=== PATIENT | female | born 1990 | race Two or more races ===

== ENCOUNTER → 2023-02-01 | Outpatient (CLI) | payer SELFPAY ==
[2023-02-01 10:03] LABS: Hematocrit 35.5 % (36.0-46.0); Hemoglobin 11.8 g/dL (12.2-16.2); Mean Corpuscular Hemoglobin 27.7 pg (28.0-32.0); Mean Corpuscular Hgb Conc. 33.4 g/dL (32.0-36.0); Red Blood Cells 4.28 10^6/uL (4.0-5.20); Red Cell Distribution Width 14.2 % (11.8-14.3); White Blood Cell 14.6 10^3/uL (4.4-10.8)
[2023-02-01 10:05] LABS: Band Neutrophils % (manual) 0; Basophils % (manual) 0 (0.0-2.0); Blast Cells 0; Eosinophils % (manual) 0 (0-7); Metamyelocytes % 0; Myelocytes % 0; Promyelocytes % 0; Reactive Lymphocytes 0
[2023-02-01 10:53] LABS: Lymphocytes % (manual) 15 (10.0-50.0); Monocytes % (manual) 9 (0-12)
[2023-02-01 11:25] LABS: Alcohol, Urine < 3.0 mg/dL (0-10); Amphetamine Screen, Urine NEGATIVE (NEGATIVE); Barbiturate Scree,Urine NEGATIVE (NEGATIVE); Benzodiazephine Screen, Urine NEGATIVE (NEGATIVE); Cannabinoid Screen, Urine NEGATIVE (NEGATIVE); Cocaine Screen, Urine NEGATIVE (NEGATIVE); Opiate Scree,Urine NEGATIVE (NEGATIVE); Phencyclidine Screen, Urine NEGATIVE (NEGATIVE)
[2023-02-02 06:17] LABS: RPR Non Reactive (Non Reactive)
== END | disposition home or self-care (01) ==
LOC: LAB 09:12
PROVIDERS: ATTEND Obstetrics & Gynecology
DX: Z34.80 Encounter for supervision of other normal pregnancy, unspecified trimester (principal); Z31.430 Encounter of female for testing for genetic disease carrier status for procreative management; Z36.0 Encounter for antenatal screening for chromosomal anomalies; N39.0 Urinary tract infection, site not specified; Z3A.00 Weeks of gestation of pregnancy not specified
CPT/HCPCS: 36415; 80307; 83036; 84112; 84702; 85007; 85027; 86592; 86762; 86850; 86900; 86901; 87086; 87340

== ENCOUNTER → 2023-03-22 | Outpatient (CLI) | payer SELFPAY ==
[2023-03-22 10:17] LABS: Basophils # (auto) 0.1 10 ^3/uL (0-0.2); Basophils % (auto) 0.7 % (0.0-2.0); Eosinophils # (auto) 0.1 10 ^3/uL (0-0.8); Eosinophils % (auto) 1.3 % (0.0-7.0); Hematocrit 36.6 % (36.0-46.0); Hemoglobin 12.6 g/dL (12.2-16.2); Lymphocytes # (auto) 2.4 10 ^3/uL (0.4-5.4); Lymphocytes % (auto) 21.1 % (10.0-50.0); Mean Corpuscular Hemoglobin 28.3 pg (28.0-32.0); Mean Corpuscular Hgb Conc. 34.3 g/dL (32.0-36.0); Mean Corpuscular Volume 82.5 fL (80.0-100.0); Monocytes # (auto) 0.8 10 ^3/uL (0-1.3); Neutrophils # (auto) 7.8 10 ^3/uL (1.6-8.6); Neutrophils % (auto) 69.9 % (37.0-80.0); Nucleated Red Blood Cells % 0.1 %; Red Blood Cells 4.44 10^6/uL (4.0-5.20); Red Cell Distribution Width 14.4 % (11.8-14.3); White Blood Cell 11.2 10^3/uL (4.4-10.8)
[2023-03-23 07:06] LABS: RPR Non Reactive (Non Reactive)
[2023-03-23 11:07] LABS: Treponema Pallidum Ab LC Non Reactive (Non Reactive)
== END | disposition home or self-care (01) ==
LOC: LAB 09:47
PROVIDERS: ATTEND Obstetrics & Gynecology
DX: Z11.3 Encounter for screening for infections with a predominantly sexual mode of transmission (principal)
CPT/HCPCS: 36415; 82947; 83036; 84112; 85025; 86592; 87081

== ENCOUNTER 2023-04-13 03:20 | Observation (INO) | payer SELFPAY ==
[~2023-04-13] VITALS: Ht 152.4 cm; Wt 76.2 kg
[2023-04-13 05:03] LABS: Basophils # (auto) 0.1 10 ^3/uL (0-0.2); Basophils % (auto) 0.6 % (0.0-2.0); Chloride 105 mmol/L (98-107); Eosinophils # (auto) 0.1 10 ^3/uL (0-0.8); Hemoglobin 13.2 g/dL (12.2-16.2); Lymphocytes # (auto) 3.2 10 ^3/uL (0.4-5.4); Lymphocytes % (auto) 22.4 % (10.0-50.0); Mean Corpuscular Hemoglobin 28.5 pg (28.0-32.0); Mean Corpuscular Hgb Conc. 33.8 g/dL (32.0-36.0); Mean Corpuscular Volume 84.3 fL (80.0-100.0); Monocytes % (auto) 7.1 % (0.0-12.0); Neutrophils # (auto) 9.9 10 ^3/uL (1.6-8.6); Neutrophils % (auto) 68.9 % (37.0-80.0); Nucleated Red Blood Cells % 0.1 %; Potassium 3.8 mmol/L (3.5-5.1); Red Blood Cells 4.63 10^6/uL (4.0-5.20); Red Cell Distribution Width 14.2 % (11.8-14.3); Sodium 135 mmol/L (136-145); White Blood Cell 14.4 10^3/uL (4.4-10.8)
[2023-04-13 05:04] LABS: Anion Gap 8.5 (5-15); Calcium 9.8 mg/dL (8.7-10.4); Carbon Dioxide 21.5 mmol/L (20-30)
[2023-04-13 05:09] LABS: Alkaline Phosphatase 203 U/L (46-116); BUN/Creatinine Ratio 10.5 (10.0-20.0); Blood Urea Nitrogen 8 mg/dL (9-23); Glucose 86 mg/dL (74-106)
[2023-04-13 05:11] LABS: Aspartate Aminotransferase 16 U/L (13-40); Bilirubin, Total 0.4 mg/dL (0.2-1.0)
[2023-04-13 05:24] LABS: INR 0.91 (0.9-1.15); Partial Thromboplastin Time 25.9 SEC (24.5-34.5); Prothrombin Time 9.6 sec (9.3-11.8)
[2023-04-13 05:30] LABS: Alanine Aminotransferase 15 U/L (7-40)
[2023-04-13 05:58] LABS: Urine Bacteria FEW /hpf (None Seen); Urine Blood TRACE /uL (Negative); Urine Clarity Clear (Clear); Urine Color Colorless (Yellow); Urine Protein, UAD Negative (Negative); Urine Specific Gravity 1.008 (1.001-1.035); Urine Urobilinogen Normal (Negative); Urine WBC 1 /hpf (0 - 5)
[2023-04-13 06:19] LABS: Protein, Urine < 6.0 mg/dL (0.0-11.9)
[2023-04-13 06:22] LABS: Amphetamine Screen, Urine Neg (NEGATIVE); Creatinine, Urine 31.75 mg/dL (30.0-125.0); Urine Protein/Creatinine Ratio 0.19
[2023-04-13 06:23] LABS: Barbiturate Scree,Urine Neg (NEGATIVE); Benzodiazephine Screen, Urine Neg (NEGATIVE); Cannabinoid Screen, Urine Neg (NEGATIVE); Cocaine Screen, Urine Neg (NEGATIVE); Opiate Scree,Urine Neg (NEGATIVE); Phencyclidine Screen, Urine Neg (NEGATIVE)
[2023-04-13 06:40] LABS: Uric Acid 4.7 mg/dL (3.1-7.8)
[2023-04-13] MEDS ORDERED: SUCCINYLCHOLINE CHLORIDE 20 MG/ML 10ML VIAL IV ONE (18:22)
[2023-04-13] MEDS ORDERED: TETRACAINE 1% INJ 2 ML VIAL IJ ONE (18:22)
[2023-04-13] MEDS ORDERED: IBUP-1456 PO ×2 (18:29)
[2023-04-13] MEDS ORDERED: DOCU-94 PO ×2 (18:29)
[2023-04-13] MEDS ORDERED: PERCOT PO ×2 (18:29)
[2023-04-14 05:07] LABS: RPR Non Reactive (Non Reactive)
[2023-04-14] MEDS ORDERED: PREN1TAB89 PO ×2 (07:57)
[2023-04-14] MEDS ORDERED: FERR30CA PO ×2 (07:57)
[2023-04-17 21:06] LABS: Treponema pallidum Ab (FTA-Ab) Non Reactive (Non Reactive)
== END 2023-04-13 08:52 | disposition home or self-care (01) ==
LOC: LDRP 03:20
PROVIDERS: ADMIT Obstetrics & Gynecology; ATTEND Obstetrics & Gynecology
DX: O62.9 Abnormality of forces of labor, unspecified (principal); O26.893 Other specified pregnancy related conditions, third trimester; N89.8 Other specified noninflammatory disorders of vagina; Z3A.40 40 weeks gestation of pregnancy; Z79.899 Other long term (current) drug therapy
CPT/HCPCS: 36415; 59025; 76818; 80053; 80307; 81001; 81002; 82570; 84156; 84550; 85025; 85610; 85730; 86592; 86850; 86900; 86901; 94760; G0378; J0330

== ENCOUNTER 2023-04-13 16:15 | Inpatient (IN) | payer SELFPAY ==
[2023-04-13] VITALS (9 sets, daily range): BP systolic 102–159; BP diastolic 64–78; PULSE 79–107; RESP 18–20; TEMP 97.8–98.1; O2SAT 93–99
[~2023-04-13] VITALS: Ht 162.6 cm; Wt 76.2 kg
[2023-04-13] MEDS ORDERED: PROMETHAZINE HCL 25 MG/ML 1ML IV PRN (17:00)
[2023-04-13] MEDS ORDERED: PHISODERM TOP SOLN 240ML BTL TOP PRN (17:00)
[2023-04-13] MEDS ORDERED: LACT. RINGERS/OXYTOCIN 20UNITS 500 ML IV ONE ×2 (17:00→17:30)
[2023-04-13] MEDS ORDERED: DERMOPLAST 60ML BOTTLE TOP PRN (17:00)
[2023-04-13] MEDS ORDERED: TERBUTALINE SULFATE 1 MG/ML 1ML VIAL SC PRN (17:00)
[2023-04-13] MEDS ORDERED: LIDOCAINE 2%HCL (LOCAL ANESTH.) INJ 20ML MDV IJ PRN (17:00)
[2023-04-13] MEDS ORDERED: WITCH HAZEL-GLYCERIN PAD TOP PRN (17:00)
[2023-04-13] MEDS ORDERED: LACTATED RINGER'S 1,000 ML IV SCH (17:00)
[2023-04-13 17:28] LABS: Urine Bacteria FEW /hpf (None Seen); Urine Blood TRACE /uL (Negative); Urine Clarity Clear (Clear); Urine Color Yellow (Yellow); Urine Protein, UAD Negative (Negative); Urine Specific Gravity 1.012 (1.001-1.035); Urine Urobilinogen Normal (Negative); Urine WBC 6 /hpf (0 - 5)
[2023-04-13] MEDS ORDERED: ROPIVACAINE HCL 200 ML EPI SCH (17:30)
[2023-04-13] MEDS ORDERED: ePHEDrine SULFATE 50 MG/ML AMP IV ONE (17:30)
[2023-04-13] MEDS ORDERED: fentaNYL CITRATE 100 MCG/2 ML VL IV ONE (17:30)
[2023-04-13] MEDS ORDERED: LIDOCAINE HCL 2 %PF INJ 10ML AMP IJ ONE (17:30)
[2023-04-13] MEDS ORDERED: NALOXONE HCL 0.4 MG/ML VIAL IV ONE (17:30)
[2023-04-13 17:42] LABS: Amphetamine Screen, Urine Neg (NEGATIVE); Barbiturate Scree,Urine Neg (NEGATIVE); Benzodiazephine Screen, Urine Neg (NEGATIVE); Cannabinoid Screen, Urine Neg (NEGATIVE); Cocaine Screen, Urine Neg (NEGATIVE); Opiate Scree,Urine Neg (NEGATIVE); Phencyclidine Screen, Urine Neg (NEGATIVE)
[2023-04-13] MEDS ORDERED: ceFAZolin 1GM/50ML 50 ML IV ONE ×2 (18:15→18:23)
[2023-04-13] MEDS ORDERED: LACTATED RINGER'S 1,000 ML IV ONE (18:15)
[2023-04-13] MEDS ORDERED: SODIUM CITR/CITRIC ACID ORAL SOLN 30 ML ONE (18:25)
[2023-04-13] MEDS ORDERED: MORPHINE SULF PF 5 MG/10 ML VIAL ONE (18:28)
[2023-04-13] MEDS ORDERED: DOCU-94 PO ×2 (18:29)
[2023-04-13] MEDS ORDERED: PERCOT PO ×2 (18:29)
[2023-04-13] MEDS ORDERED: IBUP-1456 PO ×2 (18:29)
[2023-04-13] MEDS ORDERED: LACT. RINGERS/OXYTOCIN 20UNITS 1,000 ML IV ONE (18:30)
[2023-04-13] MEDS ORDERED: SODIUM CITR/CITRIC ACID ORAL SOLN 30 ML PO ONE (18:30)
[2023-04-13] MEDS ORDERED: ONDANSETRON HCL 4 MG/2 ML VIAL IV PRN ×2 (18:30→19:45)
[2023-04-13] MEDS ORDERED: GUM (CHEWING) 1 GUM CHEW CHEW ONE (18:30)
[2023-04-13] MEDS ORDERED: ceFAZolin 1GM VL ONE (18:44)
[2023-04-13] MEDS ORDERED: ONDANSETRON HCL 4 MG/2 ML VIAL ONE (19:32)
[2023-04-13] MEDS ORDERED: ePHEDrine SULFATE 50 MG/ML AMP ONE (19:32)
[2023-04-13] MEDS ORDERED: oxyTOCIN 10 UNIT/ML 10ML VIAL ONE (19:32)
[2023-04-13] MEDS ORDERED: diphenhdrAMINE HCL 50 MG/1 ML VL IV PRN (19:45)
[2023-04-13] MEDS ORDERED: DexAMETHasone SOD PHOS 10MG/1ML VIAL INJ IV PRN (19:45)
[2023-04-13] MEDS ORDERED: NALBUPHINE HCL 10 MG/1ml INJECTION SUBCUT ONE (19:45)
[2023-04-13] MEDS ORDERED: KETOROLAC TROMETH 30 MG/ML 1ML VIAL IV PRN (19:45)
[2023-04-13] MEDS ORDERED: HYDROmorphone HCL 2 MG/ML VL/or syr IV PRN (19:45)
[2023-04-13] MEDS ORDERED: NALOXONE HCL 0.4 MG/ML VIAL IV PRN (19:45)
[2023-04-13 23:10] LABS: Basophils # (auto) 0.1 10 ^3/uL (0-0.2); Basophils % (auto) 0.5 % (0.0-2.0); Eosinophils # (auto) 0 10 ^3/uL (0-0.8); Eosinophils % (auto) 0.1 % (0.0-7.0); Hematocrit 36.4 % (36.0-46.0); Hemoglobin 12.2 g/dL (12.2-16.2); Lymphocytes # (auto) 2.1 10 ^3/uL (0.4-5.4); Mean Corpuscular Hgb Conc. 33.5 g/dL (32.0-36.0); Mean Corpuscular Volume 83.5 fL (80.0-100.0); Monocytes # (auto) 0.9 10 ^3/uL (0-1.3); Monocytes % (auto) 4.4 % (0.0-12.0); Neutrophils # (auto) 17.8 10 ^3/uL (1.6-8.6); Nucleated Red Blood Cells % 0.1 %; Red Blood Cells 4.36 10^6/uL (4.0-5.20); Red Cell Distribution Width 14.3 % (11.8-14.3)
[2023-04-14] VITALS (19 sets, daily range): BP systolic 86–118; BP diastolic 46–68; PULSE 74–109; RESP 16–20; TEMP 98.5–99; O2SAT 94–98
[2023-04-14] MEDS: LACTATED RINGER'S 1,000 ML IV SCH ×2 (00:40→08:23)
[2023-04-14] MEDS: ceFAZolin 1GM/50ML 50 ML IV SCH ×3 (02:26→10:53)
[2023-04-14 07:01] LABS: Basophils # (auto) 0 10 ^3/uL (0-0.2); Basophils % (auto) 0.1 % (0.0-2.0); Eosinophils # (auto) 0.1 10 ^3/uL (0-0.8); Eosinophils % (auto) 0.4 % (0.0-7.0); Hematocrit 31.4 % (36.0-46.0); Hemoglobin 10.2 g/dL (12.2-16.2); Lymphocytes % (auto) 12.6 % (10.0-50.0); Mean Corpuscular Hemoglobin 27.4 pg (28.0-32.0); Mean Corpuscular Hgb Conc. 32.5 g/dL (32.0-36.0); Mean Corpuscular Volume 84.1 fL (80.0-100.0); Monocytes # (auto) 1.1 10 ^3/uL (0-1.3); Monocytes % (auto) 6.5 % (0.0-12.0); Neutrophils # (auto) 13.1 10 ^3/uL (1.6-8.6); Neutrophils % (auto) 80.4 % (37.0-80.0); Red Blood Cells 3.74 10^6/uL (4.0-5.20); Red Cell Distribution Width 14.3 % (11.8-14.3); White Blood Cell 16.3 10^3/uL (4.4-10.8)
[2023-04-14] MEDS ORDERED: FERR30CA PO ×2 (07:57)
[2023-04-14] MEDS ORDERED: PREN1TAB89 PO ×2 (07:57)
[2023-04-14] MEDS: ACETAMINOPHEN IV 1000 MG/100ML (10MG/ML) IV PRN ×2 (08:22→14:22)
[2023-04-14] MEDS ORDERED: BISACODYL 10 MG RECT SUPP PR PRN (14:30)
[2023-04-14] MEDS ORDERED: HYDROcodone-ACET 5/325MG TAB PO PRN (14:30)
[2023-04-14] MEDS: SIMETHICONE 80 MG CHEWABLE TABLET PO SCH ×2 (18:01→22:16)
[2023-04-14] MEDS: DOCUSATE SOD 100 MG CAP PO SCH (18:01)
[2023-04-14] MEDS: HYDROcodone-ACET 5/325MG TAB PO PRN ×2 (18:01→22:19)
[2023-04-14] MEDS: IBUPROFEN 800 MG TAB PO PRN (20:54)
[2023-04-15] MEDS: HYDROcodone-ACET 5/325MG TAB PO PRN ×5 (02:25→19:27)
[2023-04-15 02:37] VITALS: BP 82/61; PULSE 107; RESP 18; TEMP 98; O2SAT 96
[2023-04-15] MEDS: SIMETHICONE 80 MG CHEWABLE TABLET PO SCH ×4 (06:33→22:36)
[2023-04-15 06:55] VITALS: BP 109/70; PULSE 106; RESP 18; TEMP 98.1; O2SAT 96
[2023-04-15] MEDS: IBUPROFEN 800 MG TAB PO PRN ×2 (08:55→18:10)
[2023-04-15] MEDS: DOCUSATE SOD 100 MG CAP PO SCH ×2 (10:00→22:36)
[2023-04-15 11:00] VITALS: BP 101/68; PULSE 99; RESP 20; TEMP 98.3; O2SAT 96
[2023-04-15 15:00] VITALS: BP 105/69; PULSE 99; RESP 20; TEMP 98.3; O2SAT 96
[2023-04-15 18:45] VITALS: BP 112/77; PULSE 97; RESP 18; TEMP 97.7
[2023-04-15 22:50] VITALS: BP 101/68; PULSE 90; RESP 18; TEMP 98.8
[2023-04-16] MEDS: IBUPROFEN 800 MG TAB PO PRN (02:49)
[2023-04-16 03:02] VITALS: BP 99/65; PULSE 88; RESP 18; TEMP 98.2
[2023-04-16] MEDS: HYDROcodone-ACET 5/325MG TAB PO PRN ×2 (03:55→08:17)
[2023-04-16 07:13] VITALS: BP 108/60; PULSE 109; RESP 18; TEMP 98.5
[2023-04-16 12:52] VITALS: BP 109/80; PULSE 16; TEMP 98.5; O2SAT 95
== END 2023-04-16 12:42 | disposition home or self-care (01) | DRG 787 ==
LOC: LDRP 16:15 → UNDOADMIN 16:15 → LDRP 16:55
PROVIDERS: ADMIT Obstetrics & Gynecology; ATTEND Obstetrics & Gynecology
PROC: 10D00Z1 Extraction of Products of Conception, Low, Open Approach (ICD-10-PCS; principal; 2023-04-13 18:24)
DX: O48.0 Post-term pregnancy (principal); O41.03X0 Oligohydramnios, third trimester, not applicable or unspecified; O76 Abnormality in fetal heart rate and rhythm complicating labor and delivery; Z3A.40 40 weeks gestation of pregnancy; Z37.0 Single live birth; O69.81X0 Labor and delivery complicated by cord around neck, without compression, not applicable or unspecified; O77.0 Labor and delivery complicated by meconium in amniotic fluid
CPT/HCPCS: 36415; 59025; 80307; 81001; 81002; 85025; 94760; 94762; 96360; 96361; 96365; 96366; G0378; J0131; J0690; J1885; J2405; J2590